=== PATIENT | female | born 1990 | race Caucasian/White ===

== ENCOUNTER 2017-02-10 11:40 | Inpatient (IN) ==
[2017-02-10 12:17] LABS: Bilirubin,Urine Negative (Negative); Blood,Urine Negative (Negative); Clarity,Urine Clear (Clear); Color,Urine Yellow (Yellow); Glucose,Urine (UA) Normal (Normal); Ketones,Urine Negative (Negative); Leukocyte Esterase,Urine Negative (Negative); Nitrite,Urine Negative (Negative); Protein,Urine Negative (Neg-Trace); Specific Gravity,Urine 1.014 (1.010-1.025); Urobilinogen,Urine Normal (Normal)
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
[2017-02-10 12:19] LABS: Amphetamine Screen,Urine Negative ng/mL (Cutoff=1000); Barbiturate Screen,Urine Negative ng/mL (Cutoff=200); Benzodiazepines Screen,Urine Negative ng/mL (Cutoff=200); Cannabinoid Screen,Urine Positive ng/mL (Cutoff = 50); Cocaine Screen,Urine Negative ng/mL (Cutoff= 300); Opiate Screen,Urine Negative ng/mL (Cutoff=300); Phencyclidine Screen,Urine Negative ng/mL (Cutoff=25)
[2017-02-10 12:45] LABS: Basophils % 0.4 %; Eosinophils # 0.1 K/mcL (0.0-0.6); Eosinophils % 1.3 %; Hematocrit 48.3 % (35.3-44.9); Hemoglobin 15.8 g/dL (11.5-15.4); Immature Granulocytes % 0.1 % (0-4); Lymphocytes # 2.5 K/mcL (0.6-4.6); Lymphocytes % 37.7 %; Mean Corpuscular HGB Conc 32.7 g/dL (31.6-35.5); Mean Corpuscular Hemoglobin 30.2 pg (28.0-33.3); Mean Corpuscular Volume 92.2 fL (83.0-100.0); Mean Platelet Volume 10.6 fL (9.4-12.4); Monocytes # 0.6 K/mcL (0.0-1.3); Monocytes % 8.2 %; Neutrophils # 3.5 K/mcL (1.6-8.9); Platelet Count 240 K/mcL (140-400); Red Blood Count 5.24 M/mcL (3.82-4.97); Segmented Neutrophils % 52.3 %
[2017-02-10 13:01] LABS: BUN/Creatinine Ratio 7 (6-26); Calcium 9.8 mg/dL (8.6-10.8); Carbon Dioxide 24 mEq/L (19-29); Chloride 102 mEq/L (98-109); Glucose 105 mg/dL (70-99); Osmolality,Calculated 284 (280-300); Potassium 3.9 mEq/L (3.5-4.5); Sodium 138 mEq/L (136-145); eGFR For African Americans > 60 (> 60); eGFR For Non-African Americans > 60 (> 60)
[2017-02-10 13:02] LABS: Acetaminophen < 1.0 mcg/mL (10-30); Blood Urea Nitrogen 5 mg/dL (7-20); Ethanol < 10 mg/dL (0-10); Salicylate < 5.0 mg/dL (15-30)
[2017-02-10 13:23] LABS: Thyroid Stimulating Hormone 2.685 mcIU/mL (0.350-4.840)
[2017-02-10] MEDS ORDERED: *HR* LORazepam 1 MG TABLET PO ONE (14:51)
[2017-02-10] MEDS ORDERED: MOM Conc 10 ML UD.LIQ PO PRN (16:05)
[2017-02-10] MEDS ORDERED: Mag Hydrox/Al Hydrox/Simeth 30 ML UDC PO PRN (16:05)
[2017-02-10] MEDS ORDERED: hydrOXYzine pamoate 25 MG CAPSULE PO PRN (16:05)
[2017-02-10] MEDS ORDERED: Haloperidol Lactate 5 MG/ML VIAL IM PRN (16:05)
[2017-02-10] MEDS ORDERED: *HR* LORazepam 2 MG/ML VIAL IM PRN (16:05)
[2017-02-10] MEDS ORDERED: OLANZapine 5 MG TAB.RAPDIS PO ONE (16:08)
[2017-02-10] MEDS: Gabapentin 100 MG CAPSULE PO SCH ×2 (16:24→20:44)
[2017-02-10] MEDS: Nicotine 21 MG PATCH.TD24 TD SCH (17:26)
[2017-02-10] MEDS: OLANZapine 5 MG TAB.RAPDIS PO SCH (20:44)
[2017-02-11] MEDS: Nicotine 21 MG PATCH.TD24 TD SCH (09:43)
[2017-02-11] MEDS: Gabapentin 100 MG CAPSULE PO SCH ×3 (09:44→20:26)
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
[2017-02-11] MEDS: *HR* LORazepam 1 MG TABLET PO PRN (18:55)
[2017-02-11] MEDS: OLANZapine 5 MG TAB.RAPDIS PO SCH (20:26)
[2017-02-12] MEDS: *HR* LORazepam 1 MG TABLET PO PRN (08:50)
[2017-02-12] MEDS: Gabapentin 100 MG CAPSULE PO SCH ×3 (08:50→20:29)
[2017-02-12] MEDS: Nicotine 21 MG PATCH.TD24 TD SCH (08:52)
[2017-02-12] MEDS ORDERED: hydrOXYzine pamoate 25 MG CAPSULE PO PRN (14:13)
--- NOTE | 2017-02-12 15:07 | Psychiatry Progress Note ---
Date of Encounter: 02/12/17 Time of Encounter: 15:04 Subjective Interval history: Patient seen up on Behavioral Health Unit. She appears withdrawn, internally preoccupied, is very soft spoken, responses slowed. She offers minimal responses to questions. She reports she is feeling okay today. Reports she slept last night. She states appetite is okay. Patient offers no complaints. She denies SI, HI, berry. Patient reported seeing colors to Nursing staff. Review of Systems Psychiatric: Reports: depression, anxiety, abnormal sleep pattern, change in appetite, visual hallucinations. Denies: suicidal ideation, homicidal ideation , auditory hallucinations, hopelessness, irritability Objective: Exam Level of alertness: Alert Patient appearance: Unkempt Behavior: calm Psychomotor activity: Slowed Eye contact: Maintains Eye Contact Mood description: Euthymic/stable Affect description: constricted, blunted Speech pattern: Slowed, Delayed, Impoverished Speech volume: Soft/Quiet Thought process: Slowed Thinking Thought content: Yes Preoccupation Perceptual disturbances: Yes Reacting to internal stimuli, Yes Visual hallucinations Judgment: Poor Insight: Minimal Results - Vital Signs Vital Signs: Temp Pulse Resp BP Pulse Ox 98.7 F 84 18 109/76 96 02/12/17 08:42 02/12/17 08:42 02/12/17 08:42 02/12/17 08:42 02/10/17 15:19 Assessment and Plan (1) Depressive disorder, atypical Current visit: Yes Status: Acute Plan: Continue hospitalization Risks, benefits, side effects, alternatives discussed w/pt: Yes Patient agreeable to treatment: Yes Consult Discharge Plan - Plan Referrals: NONE,PCP [Primary Care Provider] -
[2017-02-12] MEDS: OLANZapine 5 MG TAB.RAPDIS PO SCH (20:29)
[2017-02-12] MEDS: traZODone 50 MG TABLET PO PRN (20:34)
[2017-02-13] MEDS: Gabapentin 100 MG CAPSULE PO SCH ×3 (08:20→20:52)
[2017-02-13] MEDS: Nicotine 21 MG PATCH.TD24 TD SCH (08:20)
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
[2017-02-13] MEDS: traZODone 50 MG TABLET PO PRN (20:52)
[2017-02-13] MEDS: OLANZapine 5 MG TAB.RAPDIS PO SCH (20:52)
[2017-02-14] MEDS: Nicotine 21 MG PATCH.TD24 TD SCH (09:04)
[2017-02-14] MEDS: Gabapentin 100 MG CAPSULE PO SCH ×3 (09:04→21:24)
[2017-02-14] MEDS: *HR* LORazepam 1 MG TABLET PO PRN (10:49)
--- NOTE | 2017-02-14 11:26 | Psychiatry Progress Note ---
Date of Encounter: 02/14/17 Time of Encounter: 11:24 Review of Systems Constitutional: Reports: weight change Ears, Nose, Throat: Reports: throat pain. Denies: ear pain, dental pain, hearing loss, congestion Respiratory: Denies: cough, dyspnea, wheezes Psychiatric: Reports: depression, anxiety, abnormal sleep pattern, change in appetite, visual hallucinations. Denies: suicidal ideation, homicidal ideation , auditory hallucinations, hopelessness, irritability Objective: Exam Patient orientation: Yes Person, Yes Time, Yes Place, Yes Circumstance Level of alertness: Alert Patient appearance: Appropriate, Disheveled Behavior: anxious, fearful Psychomotor activity: Slowed Eye contact: Maintains Eye Contact Mood description: Anxious Affect description: constricted Speech pattern: Normal rate, Non-verbal Speech volume: Soft/Quiet Thought process: Loose Associations, Tangential Thought content: Yes Ideas of reference, Yes Paranoid delusion, Yes Thought broadcasting, Yes Thought insertion Perceptual disturbances: Yes Reacting to internal stimuli, Yes Auditory hallucinations Judgment: Limited Insight: Minimal Additional Findings: delisions of passivity thought withdrawal Results - Vital Signs Vital Signs: Temp Pulse Resp BP Pulse Ox 98.1 F 85 18 105/78 96 02/14/17 09:00 02/14/17 09:00 02/14/17 09:00 02/14/17 09:00 02/10/17 15:19 - Drug Levels and Toxicology Drug Levels and Toxicology: positive for THC negative Assessment and Plan (1) Other stimulant abuse with stimulant-induced psychotic disorder, unspecified Current visit: Yes Status: Acute (2) Cannabis abuse with cannabis-induced disorder Current visit: Yes Status: Acute (3) Unspecified psychosis Current visit: Yes Status: Acute Risks, benefits, side effects, alternatives discussed w/pt: Yes Patient agreeable to treatment: Yes Qualifiers: Psychosis type: schizophrenia Schizophrenia type: disorganized schizophrenia Qualified Code(s): F20.1 - Disorganized schizophrenia Consult Discharge Plan - Plan Referrals: NONE,PCP [Primary Care Provider] -
[2017-02-14] MEDS: OLANZapine 5 MG TAB.RAPDIS PO SCH (21:24)
[2017-02-15] MEDS: Gabapentin 100 MG CAPSULE PO SCH ×3 (08:16→20:49)
[2017-02-15] MEDS: Nicotine 21 MG PATCH.TD24 TD SCH (08:16)
[2017-02-15] MEDS ORDERED: OLANZapine 5 MG TAB.RAPDIS PO SCH (10:35)
--- NOTE | 2017-02-15 10:36 | Psychiatry Progress Note ---
Date of Encounter: 02/15/17 Time of Encounter: 10:30 Subjective Interval history: The patient is presented for follow-up. Yesterday she was seen in court and continued on an involuntary hospitalization. Today she says that she is less worried about identity theft but still once do something about it she thinks that the female that was talking to her through the lau is no longer talking to her. She is able to identify her goals and needs. She said that she talk to her mother today. She would like to go home. However she has been up at night requiring when necessary medicines she is tolerating the Zyprexa. She reports that she is breaking out under the chin. She also reports that when she takes any medicines she develops a vaginal yeast infection. She says that she has been treated with pills for this in the past. Today she reports no voices no thought insertion. She notes no side effects to her medicines Review of Systems Genitourinary male: Reports: other (yeast infection) Psychiatric: Reports: depression, anxiety, abnormal sleep pattern, change in appetite, visual hallucinations. Denies: suicidal ideation, homicidal ideation , auditory hallucinations, hopelessness, irritability Objective: Exam Level of alertness: Alert Patient appearance: Appropriate Behavior: cooperative, distractible Psychomotor activity: Slowed Eye contact: Maintains Eye Contact Mood description: Anxious Affect description: congruent with mood Speech pattern: Normal rate Speech volume: Normal Thought process: Evasive Thought content: Yes Paranoid delusion Perceptual disturbances: Yes Auditory hallucinations Judgment: Limited Insight: Partial Additional Findings: patient identifies, her onset of psychosis with the use of methamphatamine. she would like to embrace sobreity and even discussed stopping smoking cigarettes. Results - Vital Signs Vital Signs: Temp Pulse Resp BP Pulse Ox 98 F 93 16 110/86 96 02/15/17 08:20 02/15/17 08:20 02/15/17 08:20 02/15/17 08:20 02/10/17 15:19 - Drug Levels and Toxicology Drug Levels and Toxicology: drug screen was positive for THC only Assessment and Plan (1) Other stimulant abuse with stimulant-induced psychotic disorder, unspecified Current visit: Yes Status: Acute (2) Cannabis abuse with cannabis-induced disorder Current visit: Yes Status: Acute (3) Unspecified psychosis Current visit: Yes Status: Acute Additional Plan: The patient has shown significant improvement. However she has still required when necessary medicines. Therefore I will increase the olanzapine to 50 mg daily at bedtime. We will contact the patient's mother or other family members to help in our assessment. The patient's identification of the use of methamphetamine may be helpful. Avoidance of drugs and alcohol including marijuana would be advised. Smoking cessation was discussed with the patient she was receptive Risks, benefits, side effects, alternatives discussed w/pt: Yes Patient agreeable to treatment: Yes Qualifiers: Psychosis type: schizophrenia Schizophrenia type: disorganized schizophrenia Qualified Code(s): F20.1 - Disorganized schizophrenia Consult Discharge Plan - Plan Referrals: NONE,PCP [Primary Care Provider] -
[2017-02-15] MEDS: traZODone 50 MG TABLET PO PRN (20:49)
[2017-02-15] MEDS: Fluconazole 100 MG TABLET PO SCH (20:49)
[2017-02-15] MEDS: OLANZapine 10 MG TAB.RAPDIS PO SCH (20:50)
[2017-02-16] MEDS: Gabapentin 100 MG CAPSULE PO SCH ×3 (08:39→21:16)
[2017-02-16] MEDS: Fluconazole 100 MG TABLET PO SCH ×2 (08:39→21:17)
[2017-02-16] MEDS: Nicotine 21 MG PATCH.TD24 TD SCH (08:41)
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
[2017-02-16] MEDS: *HR* LORazepam 1 MG TABLET PO PRN (14:54)
[2017-02-16] MEDS: OLANZapine 10 MG TAB.RAPDIS PO SCH (21:17)
[2017-02-16] MEDS: traZODone 50 MG TABLET PO PRN (21:17)
[2017-02-17] MEDS: Fluconazole 100 MG TABLET PO SCH ×2 (08:51→21:45)
[2017-02-17] MEDS: Gabapentin 100 MG CAPSULE PO SCH ×3 (08:52→21:45)
[2017-02-17] MEDS: Nicotine 21 MG PATCH.TD24 TD SCH (08:52)
--- NOTE | 2017-02-17 13:55 | Psychiatry Progress Note ---
Date of Encounter: 02/17/17 Time of Encounter: 13:53 Subjective Interval history: Patient would like to go home. She would like to go "where heart follow". She would like to sing. She notes the medicaiotn is good. She got upset yesterday, but appologised for it. 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 Denies: suicidal ideation, homicidal ideation, auditory hallucinations, hopelessness, irritability Objective: Exam Patient orientation: Yes Person, Yes Time, Yes Place, Yes Circumstance Level of alertness: Alert Patient appearance: Appropriate Behavior: calm Psychomotor activity: Normal Eye contact: Maintains Eye Contact Mood description: Depressed, Anxious Affect description: congruent with mood Speech pattern: Normal rate, Inappropriate to situation Speech volume: Normal, Whispering Thought process: Thought Blocking Thought content: Yes Paranoid delusion Judgment: Limited Insight: Minimal Results - Vital Signs Vital Signs: Temp Pulse Resp BP Pulse Ox 98.2 F 85 18 110/78 96 02/17/17 09:00 02/17/17 09:00 02/17/17 09:00 02/17/17 09:00 02/10/17 15:19 Assessment and Plan (1) Other stimulant abuse with stimulant-induced psychotic disorder, unspecified Current visit: Yes Status: Acute Plan: Continue hospitalization Additional Plan: stay away from methamphatimine and contacts who use meth Risks, benefits, side effects, alternatives discussed w/pt: Yes Patient agreeable to treatment: Yes (2) Cannabis abuse with cannabis-induced disorder Current visit: Yes Status: Acute Plan: Monitor appetite Additional Plan: only with legal use of medical marijuana Risks, benefits, side effects, alternatives discussed w/pt: Yes Patient agreeable to treatment: Yes (3) Unspecified psychosis Current visit: Yes Status: Acute Plan: Continue hospitalization, Encourage participation in unit milieu, Group Therapy Additional Plan: cotninue hospitlaizaiton until psychosis is under better control Risks, benefits, side effects, alternatives discussed w/pt: Yes Patient agreeable to treatment: Yes Qualifiers: Psychosis type: schizophrenia Schizophrenia type: disorganized schizophrenia Qualified Code(s): F20.1 - Disorganized schizophrenia Consult Discharge Plan - Plan Referrals: Paulette Carpenter [Other] - 02/23/17 10:00 am (This appointment is with Paulette Carpenter for outpatient psychiatric assessment and medication management services. Please arrive 15 minutes early to complete paperwork. Please bring your insurance card, photo ID and medications in their original bottles. If you are unable to keep this appointment, 24 hour business notice of cancellation is expected. This is the first available new patient appointment. Office staff expect that you will be contacted with a sooner appointment as cancellations occur.) [facility] [Outside] - 03/02/17 10:00 am (The above appointment is with Kathrine for outpatient mental health and substance abuse counseling services. Please bring your photo ID and insurance card to first appointment.)
[2017-02-17] MEDS: OLANZapine 10 MG TAB.RAPDIS PO SCH (21:45)
[2017-02-17] MEDS: traZODone 50 MG TABLET PO PRN (21:45)
[2017-02-18] MEDS: Nicotine 21 MG PATCH.TD24 TD SCH (09:01)
[2017-02-18] MEDS: Fluconazole 100 MG TABLET PO SCH ×2 (09:01→21:00)
[2017-02-18] MEDS: Gabapentin 100 MG CAPSULE PO SCH ×3 (09:07→20:56)
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
[2017-02-18] MEDS: Ibuprofen 400 MG TABLET PO PRN ×2 (12:45→20:57)
[2017-02-18] MEDS: OLANZapine 10 MG TAB.RAPDIS PO SCH (20:56)
[2017-02-18] MEDS: traZODone 50 MG TABLET PO PRN (20:57)
[2017-02-19] MEDS: Nicotine 21 MG PATCH.TD24 TD SCH (09:05)
[2017-02-19] MEDS: Fluconazole 100 MG TABLET PO SCH ×2 (09:05→21:44)
[2017-02-19] MEDS: Gabapentin 100 MG CAPSULE PO SCH ×3 (09:05→21:45)
--- NOTE | 2017-02-19 11:34 | Psychiatry Progress Note ---
Date of Encounter: 02/19/17 Time of Encounter: 11:27 Subjective Interval history: Looks better today. Not talking about identity theft. Not responding to IS. Did poorly yesterday after meeting with this continuity writer. Went up to the nursing station and was talking loudly to herself. However, she had visitors later in the day and she seemed to calm down after that. Took a higher dose of Zyprexa last night and this likely helped as well. Asking about anxiety today. Has not tried prns so discussed using Vistaril as needed today. Client reports her mother told her last night that she has noticed big improvements. Client will be living with mother. Will get her feedback tomorrow. If she is comfortable client should be ready to go tomorrow. Denying SI/HI. Psychosis has improved. Review of Systems Constitutional: Denies: fever, chills, weakness, weight change Eyes: Denies: eye pain, vision change Ears, Nose, Throat: Denies: ear pain, throat pain, dental pain, hearing loss, congestion Cardiovascular: Denies: chest pain, palpitations, dyspnea on exertion Respiratory: Denies: cough, dyspnea, wheezes Gastrointestinal: Denies: abdominal pain, nausea, vomiting, diarrhea, constipation Musculoskeletal: Denies: joint swelling, joint pain Neurological: Denies: headache, weakness, numbness, memory loss Psychiatric: Reports: depression, anxiety, change in appetite. Denies: suicidal ideation, homicidal ideation, auditory hallucinations, hopelessness, irritability Objective: Exam Patient orientation: Yes Person, Yes Time, Yes Place Level of alertness: Alert Patient appearance: Disheveled Behavior: calm, cooperative Psychomotor activity: Normal Eye contact: Maintains Eye Contact Mood description: Euthymic/stable Affect description: congruent with mood Speech pattern: Normal rate, Normal rhythm, Normal tone Speech volume: Normal Thought process: Goal Oriented Thought content: No Suicidal ideation, No Homicidal ideation Perceptual disturbances: No Auditory hallucinations, No Visual hallucinations Judgment: Fair Insight: Partial Results - Vital Signs Vital Signs: Temp Pulse Resp BP Pulse Ox 97.8 F 93 16 108/79 96 02/19/17 09:00 02/19/17 09:00 02/19/17 09:00 02/19/17 09:00 02/10/17 15:19 Assessment and Plan (1) Unspecified psychosis Current visit: Yes Status: Acute Plan: Continue hospitalization, Close observation, Suicide Precautions per unit protocol, Encourage participation in unit milieu, Group Therapy, Monitor sleep, Monitor appetite Risks, benefits, side effects, alternatives discussed w/pt: Yes Patient agreeable to treatment: Yes Qualifiers: Psychosis type: schizophrenia Schizophrenia type: disorganized schizophrenia Qualified Code(s): F20.1 - Disorganized schizophrenia (2) Other stimulant abuse with stimulant-induced psychotic disorder, unspecified Current visit: Yes Status: Acute Plan: Continue hospitalization, Close observation, Suicide Precautions per unit protocol, Encourage participation in unit milieu, Group Therapy, Monitor sleep, Monitor appetite Risks, benefits, side effects, alternatives discussed w/pt: Yes Patient agreeable to treatment: Yes Consult Discharge Plan - Plan Referrals: Paulette Carpenter [Other] - 02/23/17 10:00 am (This appointment is with Paulette Carpenter for outpatient psychiatric assessment and medication management services. Please arrive 15 minutes early to complete paperwork. Please bring your insurance card, photo ID and medications in their original bottles. If you are unable to keep this appointment, 24 hour business notice of cancellation is expected. This is the first available new patient appointment. Office staff expect that you will be contacted with a sooner appointment as cancellations occur.) [facility] [Outside] - 03/02/17 10:00 am (The above appointment is with Kathrine for outpatient mental health and substance abuse counseling services. Please bring your photo ID and insurance card to first appointment.)
[2017-02-19] MEDS: traZODone 50 MG TABLET PO PRN (21:44)
[2017-02-19] MEDS: OLANZapine 10 MG TAB.RAPDIS PO SCH (21:45)
[2017-02-20] MEDS: Gabapentin 100 MG CAPSULE PO SCH ×3 (08:54→20:53)
[2017-02-20] MEDS: Nicotine 21 MG PATCH.TD24 TD SCH (08:54)
[2017-02-20] MEDS: Fluconazole 100 MG TABLET PO SCH ×2 (08:54→20:54)
--- NOTE | 2017-02-20 13:16 | Psychiatry Progress Note ---
Date of Encounter: 02/20/17 Time of Encounter: 12:00 Subjective Interval history: Vu is seen today for follow-up of her psychosis. She states that since starting the Zyprexa she feels " much more even." She does not have any side effects that she is aware of. Thought process remains circumstantial at times. She does have some delayed speech. She has no problems staying here in the hospital until medications have full-time work. She is looking forward to going home and seeing her family. She is comfortable with discharge in the next day or 2 if symptoms improve. She reports she is sleeping well. Review of Systems Psychiatric: Reports: anxiety. Denies: abnormal sleep pattern, suicidal ideation, homicidal ideation, auditory hallucinations, hopelessness, irritability Objective: Exam Patient orientation: Yes Person, Yes Time, Yes Place Level of alertness: Alert Patient appearance: Appropriate Behavior: calm, cooperative Psychomotor activity: Slowed Eye contact: Minimal Contact Mood description: Euthymic/stable Affect description: constricted Speech pattern: Delayed Speech volume: Soft/Quiet Thought process: Circumstantial, Loose Associations Thought content: No Suicidal ideation, No Homicidal ideation Perceptual disturbances: Yes Reacting to internal stimuli, No Auditory hallucinations, No Visual hallucinations Judgment: Limited Insight: Minimal Results - Vital Signs Vital Signs: Temp Pulse Resp BP Pulse Ox 98.2 F 91 16 122/82 96 02/20/17 08:57 02/20/17 08:57 02/20/17 08:57 02/20/17 08:57 02/10/17 15:19 Assessment and Plan (1) Unspecified psychosis Current visit: Yes Status: Acute Plan: Continue hospitalization, Close observation, Suicide Precautions per unit protocol, Encourage participation in unit milieu, Group Therapy, Monitor sleep, Monitor appetite Additional Plan: cotnin hospitlaizaiton . Psychosis is improving but patient still has some obvious delay speech and likely is still responding to internal stimuli. She is more organized than on admission. Continue to monitor plan for discharge in the next couple of days as symptoms improved. Risks, benefits, side effects, alternatives discussed w/pt: Yes Patient agreeable to treatment: Yes Qualifiers: Psychosis type: schizophrenia Schizophrenia type: disorganized schizophrenia Qualified Code(s): F20.1 - Disorganized schizophrenia (2) Other stimulant abuse with stimulant-induced psychotic disorder, unspecified Current visit: Yes Status: Acute Additional Plan: Encouraged patient to discontinue methamphetamine use. Educated patient on the negative consequences of meth use. Risks, benefits, side effects, alternatives discussed w/pt: Yes Patient agreeable to treatment: Yes Consult Discharge Plan - Plan Referrals: Paulette Carpenter [Other] - 02/23/17 10:00 am (This appointment is with Paulette Carpenter for outpatient psychiatric assessment and medication management services. Please arrive 15 minutes early to complete paperwork. Please bring your insurance card, photo ID and medications in their original bottles. If you are unable to keep this appointment, 24 hour business notice of cancellation is expected. This is the first available new patient appointment. Office staff expect that you will be contacted with a sooner appointment as cancellations occur.) [facility] [Outside] - 03/02/17 10:00 am (The above appointment is with Kathrine for outpatient mental health and substance abuse counseling services. Please bring your photo ID and insurance card to first appointment.)
[2017-02-20] MEDS: Ibuprofen 400 MG TABLET PO PRN (20:53)
[2017-02-20] MEDS: OLANZapine 10 MG TAB.RAPDIS PO SCH (20:53)
[2017-02-20] MEDS: traZODone 50 MG TABLET PO PRN (20:54)
[2017-02-21 09:49] VITALS: BP 112/75
[2017-02-21] MEDS: Gabapentin 100 MG CAPSULE PO SCH (10:12)
[2017-02-21] MEDS: Fluconazole 100 MG TABLET PO SCH (10:12)
[2017-02-21] MEDS: Nicotine 21 MG PATCH.TD24 TD SCH (10:13)
--- NOTE | 2017-02-21 12:07 | Discharge Summary ---
Date of Encounter: 02/21/17 Time of Encounter: 10:40 Diagnosis - Discharge Diagnosis (1) Unspecified psychosis Priority: Primary Status: Acute Qualifiers: Psychosis type: schizophrenia Schizophrenia type: unspecified Qualified Code(s): F20.9 - Schizophrenia, unspecified (2) Other stimulant abuse with stimulant-induced psychotic disorder, unspecified Priority: Secondary Status: Acute Medications - Discharge Medications Prescriptions: Gabapentin [Neurontin] 100 mg PO TID #30 capsule OLANZapine [Zyprexa Zydis] 20 mg PO HS #30 tab.rapdis traZODone [TraZODone] 50 mg PO HS PRN #30 tablet PRN Reason: Insomnia Gabapentin [Neurontin] 100 mg PO TID #30 capsule 02/21/17 [Rx] OLANZapine [Zyprexa Zydis] 20 mg PO HS #30 tab.rapdis 02/21/17 [Rx] traZODone [TraZODone] 50 mg PO HS PRN #30 tablet 02/21/17 [Rx] 3 Allergy/AdvReac Type Severity Reaction Status Date / Time No Known Allergies Allergy Verified 02/10/17 16:00 Provider Date of admission: 02/10/17 15:59 Primary care physician: PCP NONE Discharging clinician: Ashley Hartmann Assessment and Plan - Patient/Caregiver Discharge Instructions Activity: resume usual activities as tolerated Diet: regular diet - Follow up Plan Follow up with: Paulette Carpenter [Other] - 02/23/17 10:00 am (This appointment is with Paulette Carpenter for outpatient psychiatric assessment and medication management services. Please arrive 15 minutes early to complete paperwork. Please bring your insurance card, photo ID and medications in their original bottles. If you are unable to keep this appointment, 24 hour business notice of cancellation is expected. This is the first available new patient appointment. Office staff expect that you will be contacted with a sooner appointment as cancellations occur.) [facility] [Outside] - 03/02/17 10:00 am (The above appointment is with Kathrine for outpatient mental health and substance abuse counseling services. Please bring your photo ID and insurance card to first appointment.) Functional capacity at discharge: independent ambulation Overall status at discharge: Stable Disposition: Home, Self-Care Hospital Course Hospital course: Ms. Medley is a 26 year old female who presented to the hospital with psychosis and bizarre behavior as well as history of methamphetamine use. She was admitted to the hospital for psychiatric stabilization. Patient was incorporated into the therapeutic milieu and offer group and individual as well as recreational therapy. She was placed on suicide precautions and close observation per unit protocol. Patient initially presented to the hospital psychotic. She was started on Zyprexa medication was titrated up to 10 mg by mouth daily at bedtime. We discussed the importance of patient discontinuing drug and alcohol use because of its effect on her mood and her cognition. Mom is supportive and has been taking care of patient's kids. Patient is looking forward to leaving the hospital and is willing to try outpatient treatment or further medication adjustments. She is also willing to see a therapist. Patient's cognitive function and thought process has improved significantly with the Zyprexa. Patient is aware that she needs to continue to take the medication in order to help with her current symptoms. At the time of discharge she did not appear to be responding to internal stimuli. She denied auditory or visual hallucinations. She denied suicidal or homicidal ideation, intent or plan. Staff spoke to mom was comfortable with her coming home and is willing to encourage her to continue her outpatient treatment. She is discharged in stable condition. - Time Spent with Patient Total time spent providing and/or coordinating discharge services: Less than 30 minutes Quality - Multiple Antipsychotics Patient discharged on 2 or more antipsychotic medications: No Procedures - Procedures Procedures: Medication Management, Crisis Stabilization, Supportive Therapy, Group Therapy, Psychoeducational Therapy Mental Status Exam - Mental Status Exam Patient orientation: Yes Person, Yes Time, Yes Place Level of alertness: Alert Patient appearance: Appropriate, Well Groomed Behavior: calm, cooperative Psychomotor activity: Normal Eye contact: Maintains Eye Contact Mood description: Euthymic/stable Affect description: constricted (more full range then yesterday.) Speech pattern: Normal rate, Normal rhythm, Normal tone Speech Volume: Normal Thought process: Linear, Goal Oriented Thought Content: No Suicidal ideation, No Homicidal ideation, No Overt delusions Perceptual Disturbances: No Auditory hallucinations, No Visual hallucinations Judgment: Limited Insight: Partial
== END 2017-02-21 13:50 | disposition home or self-care (01) | DRG 750 ==
LOC: EMEROO 11:40 → 1ANU 15:59 → SUATTDRO 15:59 → 1ANU 16:12
PROVIDERS: ADMIT Psychiatry & Neurology Psychiatry; ATTEND Student in an Organized Health Care Education/Training Program